=== PATIENT | male | born 1955 | race Caucasian/White ===

== ENCOUNTER 2020-03-20 17:30 | Emergency (ER) | payer OTHER ==
[~2020-03-20] VITALS: Ht 162.6 cm; Wt 68.9 kg
[2020-03-20 17:30] VITALS: BP_SYST 138
[2020-03-20] MEDS ORDERED: D5/0.45 NS 1,000 ML IV SCH (19:15)
[2020-03-20 19:28] LABS: BASOPHILS % (AUTO) 0.2 % (0.0-2.0); CALCIUM 8.3 mg/dL (8.4-11.0); CREATININE 0.84 mg/dL (0.55-1.30); HEMATOCRIT 39.1 % (36-54); HEMOGLOBIN 12.9 g/dL (14.0-18.0); LYMPHOCYTES % (AUTO) 8.4 % (20.5-51.5); MEAN CORPUSCULAR HEMOGLOBIN 30 pg (27-31); MEAN CORPUSCULAR HGB CONC 33 % (32-36); MEAN CORPUSCULAR VOLUME 90 fL (79.0-98.0); MONOCYTES # (AUTO) 0.7 K/uL (0.0-1.0); MONOCYTES % (AUTO) 6.1 % (1.7-9.3); NEUTROPHILS # (AUTO) 10.4 K/uL (1.8-7.7); NEUTROPHILS % (AUTO) 85.3 % (40.0-70.0); PLATELET COUNT (AUTO) 280 K/uL (130-430); POTASSIUM 3.8 mmol/L (3.5-5.1); RED BLOOD CELL COUNT(AUTO) 4.36 MIL/uL (4.2-6.2); RED CELL DISTRIBUTION WIDTH 12.7 % (9.0-15.0); WHITE BLOOD COUNT (AUTO) 12.2 K/uL (4.8-10.8)
[2020-03-20 19:33] LABS: ALBUMIN 3.5 g/dL (3.4-4.8); TOTAL BILIRUBIN 0.8 mg/dL (0.0-1.0)
[2020-03-20] MEDS ORDERED: MORPHINE 4 MG/ML INJ. SYRINGE IVP ONE (20:30)
[2020-03-20] MEDS ORDERED: MORPHINE 4 MG/ML INJ. SYRINGE ONE (20:36)
[2020-03-20 21:30] VITALS: BP_SYST 126
== END 2020-03-20 21:30 | disposition other institution (70) ==
LOC: SED 17:30 → SMU 19:08 → UNDOADMIN 19:08 → SMU 21:30 → UNDODISIN 21:30
DX: S82.141A Displaced bicondylar fracture of right tibia, initial encounter for closed fracture (principal); S82.831A Other fracture of upper and lower end of right fibula, initial encounter for closed fracture; W18.39XA Other fall on same level, initial encounter; Y93.89 Activity, other specified; Y92.89 Other specified places as the place of occurrence of the external cause; Y99.8 Other external cause status
CPT/HCPCS: 36415; 73564; 80053; 85025; 96374; 99285; J2270